=== PATIENT | male | born 1975 | race African-American/Black ===

== ENCOUNTER 2025-08-29 14:38 | Emergency (ER) | payer MEDICAID ==
[~2025-08-29] VITALS: Ht 172.7 cm; Wt 91.0 kg
[2025-08-29 14:55] VITALS: TEMP 36.7; O2SAT 100
[2025-08-29] MEDS: TETANUS, DIPHTHERIA, PERTUSSIS VAC/PF 0.5ML (>10YR OLD) IM ONE (16:15)
[2025-08-29] MEDS: LIDOCAINE HCL 1% 20ML VIAL INFIL ONE (16:15)
[2025-08-29] MEDS ORDERED: CEPH500T MT (17:24)
[2025-08-29] MEDS: BACITRACIN ZINC OINT UDPKT TOP ONE (17:30)
[2025-08-29 17:48] VITALS: BP 118/69; PULSE 72; RESP 16; O2SAT 100
== END 2025-08-29 18:15 | disposition home or self-care (01) ==
LOC: ER 14:38
DX: S61.214A Laceration without foreign body of right ring finger without damage to nail, initial encounter (principal); Z23 Encounter for immunization; W17.89XA Other fall from one level to another, initial encounter; Y93.89 Activity, other specified; Y92.89 Other specified places as the place of occurrence of the external cause; Y99.8 Other external cause status
CPT/HCPCS: 90715; 12001; 90471; 99283; J2003; Z7610 ×2